=== PATIENT | female | born 1935 | race Caucasian/White ===

== ENCOUNTER 2023-12-25 12:32 | Outpatient (CLI) | payer MEDICARE, SELFPAY | END 2023-12-25 12:33 | disposition home or self-care (01) | LOC: ANHAUDASC 12:33 | PROVIDERS: Visit Provider Otolaryngology | DX: H90.6 Mixed conductive and sensorineural hearing loss, bilateral (principal); H65.492 Other chronic nonsuppurative otitis media, left ear; K50.90 Crohn's disease, unspecified, without complications; J44.9 Chronic obstructive pulmonary disease, unspecified | CPT/HCPCS: 92557; 92567 ==